=== PATIENT | female | born 1980 | race Caucasian/White ===

== ENCOUNTER 2017-03-24 09:41 | Emergency (ER) | payer SELFPAY ==
[2017-03-24 10:01] LABS: URINE APPEARANCE CLOUDY; URINE BILIRUBIN NEGATIVE (NEGATIVE); URINE BLOOD LARGE (NEGATIVE); URINE COLOR ORANGE; URINE KETONE 15 mg/dL (NEGATIVE); URINE LEUKOCYTE ESTERASE NEGATIVE (NEGATIVE); URINE NITRITE NEGATIVE (NEGATIVE); URINE PROTEIN NEGATIVE (NEGATIVE); URINE UROBILINOGEN 0.2 E.U./dL (0.20 - 1.00)
--- NOTE | 2017-03-24 10:04 | Emergency Department Record ---
History of Present Illness - General Chief complaint: complication Stated complaint: POSSIBLE MISCARRAIGE Time Seen by Provider: 03/24/17 10:03 Source: Patient Mode of Arrival: Ambulatory Limitations: No limitations - History of Present Illness Initial comments: The patient is here due to having heavier than normal vaginal bleeding for 4 days. She denies any AP, pelvic pain, dysuria, or lightheadedness. She has gone thru 2 pads over the last 4 hours. The patient has a hx of multiple ectopic pregnancies and is concerned she could have another one. The patient also woke up with a mild frontal WAITE but it is improved now. She denies any vomiting, neck pain, fever, or visual changes. MD Complaint: Vaginal bleeding Onset/Timin -: Days(s) Location: Other Severity: Moderate Quality: Cramping Consistency: Intermittent Improves with: Rest Worsens with: Movement Associated symptoms: Headache, Vaginal bleeding Vaginal bleeding: Heavy, Clots 02/25/17 - Related Data : 7 Para: 2 Ab: 5 Previous Rx's Medication Instructions Recorded Metformin HCl 500 mg PO BID #20 tab 03/24/17 Allergies Allergy/AdvReac Type Severity Reaction Status Date / Time No Known Drug Allergies Allergy Verified 08/22/15 06:19 Review of Systems Constitutional: Denies: Chills, Fever Eyes: Denies: Eye discharge ENT: Denies: Congestion Respiratory: Denies: Cough Past Medical History - SOCIAL HISTORY Smoking Status: Never smoker Alcohol Use: Occasional Drug Use: None - IMCU NURSE History : 7 Para: 2 A: 5 - RESPIRATORY Hx Respiratory Disorders: No - CARDIOVASCULAR Hx Cardio Disorders: No - NEURO Hx Neuro Disorders: No - GI Hx GI Disorders: No - Hx Genitourinary Disorders: No - ENDOCRINE Hx Endocrine Disorders: Yes Hx Diabetes: Yes (NIDDM) - MUSCULOSKELETAL Hx Musculoskeletal Disorders: No - PSYCH Hx Psych Problems: No - HEMATOLOGY/ONCOLOGY Hx Hematology/Oncology Disorders: No Family Medical History Any Significant Family History?: No Hx Diabetes: Father *Diabetes Comment: Aunt Hx Heart Disease: Father *Heart Comment: Aunt Physical Exam - General General Appearance: Alert, Oriented x3, Cooperative, No acute distress - Head Head exam: Atraumatic, Normocephalic, Normal inspection (There is tenderness to palpation to the frontal area.) - Eye Eye exam: Normal appearance, PERRL, EOMI - Neck Neck exam: Normal inspection, Full ROM. negative: Meningismus, Tenderness - Respiratory Respiratory exam: Normal lung sounds bilaterally. negative: Respiratory distress - Cardiovascular Cardiovascular Exam: Regular rate, Normal rhythm, Normal heart sounds - GI/Abdominal GI/Abdominal exam: Soft, Normal bowel sounds. negative: Distended, Rebound, Rigid, Tenderness - Extremities Extremities exam: Normal inspection, Full ROM, Normal capillary refill. negative: Tenderness Course Vital Signs 03/24/17 09:42 Temperature 98.3 F Pulse Rate 104 H Respiratory 18 Rate Blood Pressure 162/104 Pulse Ox 96 - Reevaluation(s) Reevaluation #1: The patient is doing much better at this time. She denies any WAITE, nausea, vomiting or any AP. Her vaginal bleeding has resolved and she denies any pelvic cramping. I did offer the patient to perform a pelvic exam due to the bleeding but she declined since the bleeding has stopped. I also did discuss the elevated blood sugar with her and she states she is supposed to be on Metformin and Glipizide but does not know the doses. She has been off the medicine for months due to not having insurance. She presently is not exhibiting any signs of any problems due to the BS being elevated and was over 300 on a reading in 2016. She is to restart the Metformin and recheck with her PCP next week. 03/24/17 11:36 Medical Decision Making - Lab Data Result diagrams: 03/24/17 10:20 03/24/17 10:20 Disposition Disposition: Discharge Clinical Impression: Hyperglycemia Menorrhagia Qualifiers: Menorrahagia type: with regular cycle Qualified Code(s): N92.0 - Excessive and frequent menstruation with regular cycle Disposition: Home, Self-Care Condition: (1) Good Instructions: Menorrhagia (ED), Diabetic Hyperglycemia (ED) Additional Instructions: Please drink plenty of water and restart your Metformin. Please see your PCP next week to recheck your blood sugar and also see your [facility] doctor for the vaginal bleeding. Return to the ER for any pain, return of the bleeding, or vomiting. Prescriptions: Metformin HCl 500 mg PO BID #20 tab Forms: Patient Portal Access Time of Disposition: 11:35 Quality - Quality Measures Quality Measures: N/A - Blood Pressure Screening View Details: Yes Does Patient Have Any of the Following: No Blood Pressure Classification: Hypertensive Reading Systolic Measurement: 141 Diastolic Measurement: 93 Screening for High Blood Pressure: < Pre-Hypertensive BP, F/U Documented > [ [id number]] Pre-Hypertensive Follow-up Interventions: Referral to alternative/primary care provider.
[2017-03-24 10:07] LABS: URINE GLUCOSE (UA) >=1000 mg/dL (NEGATIVE)
[2017-03-24 10:09] LABS: HCG,QUALITATIVE URINE NEGATIVE (NEGATIVE)
[2017-03-24] MEDS ORDERED: ACETAMINOPHEN 325 MG TAB PO ONE (10:16)
[2017-03-24 10:17] LABS: URINE BACTERIA NONE SEEN; URINE EPITHELIAL CELLS 0 - 2 (FEW); URINE WBC NONE SEEN (0-2/hpf)
[2017-03-24 10:26] LABS: BASO % 0.2 % (0-6); EOS % 1.9 % (0-6); GRAN % 68.7 % (47-80); HEMATOCRIT 38.7 % (35.0-47.0); HEMOGLOBIN 13.7 gm/dl (11.6-16.0); LYMPH % 22.4 % (16-45); MEAN CORPUSCULAR HEMOGLOBIN 29.4 pg (27-33); MEAN CORPUSCULAR HGB CONC 35.4 g/dl (32-36); MEAN PLATELET VOLUME 12.4 fl (7.4-10.4); MONO % 6.8 % (0-9); PLATELET COUNT 198 K/uL (130-400); RED BLOOD COUNT 4.66 M/uL (3.80-5.40); RED CELL DISTRIBUTION WIDTH 12.5 % (11.5-14.5); WHITE BLOOD COUNT W/O DIFF 4.8 K/uL (4.2-12.2)
[2017-03-24 10:41] LABS: BLOOD UREA NITROGEN 11 mg/dL (7-17); CARBON DIOXIDE 23.9 mmol/L (22-30); CREATININE 0.5 mg/dL (0.52-1.04); EST GLOMERULAR FILTRATION RATE > 60 ml/min; GLUCOSE,RANDOM 418 mg/dL (70-110)
[2017-03-24 12:39] LABS: ANION GAP 9.1 (7-16)
== END 2017-03-24 11:44 | disposition home or self-care (01) ==
LOC: ER 09:41
DX: E11.65 Type 2 diabetes mellitus with hyperglycemia (principal); N92.0 Excessive and frequent menstruation with regular cycle
CPT/HCPCS: 80048; 81001; 81025; 84703; 85025; 99283